=== PATIENT | female | born 1985 | race Caucasian/White ===

== ENCOUNTER 2016-08-15 10:55 | Emergency (ER) | payer OTHER ==
[~2016-08-15] VITALS: Ht 172.7 cm; Wt 81.0 kg
[~2016-08-15 10:55] MED LIST: PERC5TAB12 PO; REGL10TA5 PO
[2016-08-15 10:59] VITALS: BP 110/68; PULSE 70; RESP 16; TEMP 97.9; O2SAT 98
--- NOTE | 2016-08-15 11:28 | PD ---
HPI Chief Complaint: GI Complaint Time Seen by Provider: 11:28 Travel History International Travel<30 days: No Contact w/Intl Traveler<30days: No Traveled to known affect area: No History of Present Illness HPI 31-year-old female came to the emergency room with history of vomiting and diarrhea for past almost 1 week. Patient had gone to the [facility] emergency room 3 days ago with the same complain where blood work and CAT scan was done. They were all essentially within normal limits. Patient was discharged home on Reglan. She says the diarrhea is still continuing. Today she had 6 episodes. She did some Internet search and is concerned about C. difficile, H pylori or any other cause of diarrhea. She wants her stool to be tested. She says she called her primary care doctor who could not see her. Vital signs are otherwise stable. Patient does not appear to be in any significant distress. PFSH Past Medical History Narrative Medical List of her past medical, surgical, social and family history is reviewed from the nursing note. Cancer: No Diabetes: No Diminished Hearing: No Glaucoma: No Hepatitis: No Hiatal Hernia: No Hypertension: No Integumentary: Yes (MRSA SKIN INFECTION) Migraines: Yes Thyroid Disease: No ?: Not LMP: 08/10/2016 : 1 Para: 0 Miscarriage: 0 : 0 Past Surgical History Abdominal Surgery: Yes (NUHA) Cardiac Surgery: No Cholecystectomy: Yes Ear Surgery: No Endocrine Surgery: No Eye Surgery: No Genitourinary Surgery: No Gynecologic Surgery: No Oral Surgery: No Pacemaker: No Thoracic Surgery: No Other Surgery: Yes Social History Alcohol Use: Yes (TWICE A MONTH) Tobacco Use: No Substance Use: No Allergies-Medications (Allergen,Severity, Reaction): Coded Allergies: Botox (Verified Allergy, Severe, Rash, 08/15/16) Dilaudid (Verified Allergy, Severe, 08/15/16) Morphine (Verified Allergy, Severe, RESPIRATORY DISTRESS, 08/15/16) Zofran (Verified Allergy, Severe, 08/15/16) Vancomycin (Verified Allergy, Mild, ITCHING, 08/15/16) Comments List of her allergies reviewed from the nursing note. Reported Meds & Prescriptions Reported Meds & Active Scripts Active Percocet (Oxycodone-Acetaminophen) 5-325 mg Tab 1 Tab PO Q4H PRN Reglan (Metoclopramide HCl) 10 Mg Tab 10 Mg PO TIDAC Narrative Medication List of her home medications reviewed from the nursing note. Review of Systems Except as stated in HPI: all other systems reviewed are Neg Physical Exam Narrative GENERAL: Awake, alert, no obvious distress SKIN: Focused skin assessment warm/dry. HEAD: Atraumatic. Normocephalic. EYES: Pupils equal and round. No scleral icterus. No injection or drainage. ENT: No nasal bleeding or discharge. Mucous membranes pink and moist. NECK: Trachea midline. No JVD. CARDIOVASCULAR: Regular rate and rhythm. No murmur appreciated. RESPIRATORY: No accessory muscle use. Clear to auscultation. Breath sounds equal bilaterally. GASTROINTESTINAL: Abdomen soft, non-tender, nondistended. Hepatic and splenic margins not palpable. MUSCULOSKELETAL: No obvious deformities. No clubbing. No cyanosis. No edema. NEUROLOGICAL: Awake and alert. No obvious cranial nerve deficits. Motor grossly within normal limits. Normal speech. PSYCHIATRIC: Appropriate mood and affect; insight and judgment normal. Data Data Last Documented VS Vital Signs Date Time Temp Pulse Resp B/P Pulse Ox O2 Delivery O2 Flow Rate FiO2 08/15/16 10:59 97.9 70 16 110/68 98 Orders C Diff Toxin Pcr (08/15/16 11:44) Enteric Path (Stool) (08/15/16 11:50) Labs Laboratory Tests Test 08/15/16 11:50 Stool C. difficile Toxin (PCR) NEGATIVE Stl C. difficile Toxin PRESUMPTIVE Epiderm 027 NEGATIVE MDM Medical Decision Making Medical Screen Exam Complete: Yes Emergency Medical Condition: Yes Medical Record Reviewed: Yes Differential Diagnosis Gastroenteritis, chronic diarrhea Narrative Course 12:02 PM after reviewing the thorough workup that was done in [facility] emergency [facility] and all the tests results being within normal limits I'm comfortable discharging her home. I had a lengthy discussion with her and I have agreed to send her stool for test. However these results will take a while to come back and she certainly does not need to be held in the emergency room. She would be called if the test is also positive and patient understands this. She'll continue taking her Reglan and needs to follow up with the primary care. Procedures EKG Prior to Arrival: No Diagnosis Primary Impression: Gastroenteritis Referrals: Primary Care Physician 3 days Additional Instructions: You will be called regarding your stool test results of any of them come back positive. It more than welcome to call the emergency department in 48 hours if you do not hear from them regarding these results. If the stool test results are negative you can start herself on Imodium which is available over-the- counter for the diarrhea. In the meanwhile continue taking the Ursula diet and Reglan that you were prescribed from [facility] emergency room. Return to the ER if the condition worsens or any other new concerns. Med/Other Pt SpecificInfo: No Change to Meds Disposition: 01 DISCHARGE HOME Condition: Stable Gloria Bliss MD August 15, 2016 11:28
[2016-08-16 05:29] LABS: C. DIFF EPI 027 PRESUMPTIVE NEGATIVE (NEGATIVE); C. DIFF TOXIN PCR NEGATIVE (NEGATIVE)
== END 2016-08-15 12:28 | disposition home or self-care (01) ==
LOC: NEPD 10:55
DX: K52.9 Noninfective gastroenteritis and colitis, unspecified (principal)
CPT/HCPCS: 87493; 87506; 99284